=== PATIENT | male | born 1980 | race Caucasian/White ===

== ENCOUNTER 2017-04-27 21:24 | Emergency (ER) | payer OTHER ==
[~2017-04-27] VITALS: Ht 177.8 cm; Wt 90.7 kg
[2017-04-27 21:33] VITALS: BP_SYST 136
--- NOTE | 2017-04-27 21:33 | NUR ---
Patient placed in waiting room VSS, will continue to monitor.
--- NOTE | 2017-04-27 22:15 | NUR ---
Patient notified staff he will not be continue to wait for MD examination. Spoke with patient and patient is adament he will follow up with his PCP.
== END 2017-04-27 22:15 | disposition left against medical advice (07) ==
LOC: SED 21:24
DX: S89.91XA Unspecified injury of right lower leg, initial encounter (principal); Z53.21 Procedure and treatment not carried out due to patient leaving prior to being seen by health care provider; X58.XXXA Exposure to other specified factors, initial encounter; Y93.67 Activity, basketball; Y92.320 Baseball field as the place of occurrence of the external cause; Y99.8 Other external cause status